=== PATIENT | male | born 1985 | race Caucasian/White ===

== ENCOUNTER 2018-03-08 09:59 | Emergency (ER) | payer SELFPAY ==
--- NOTE | 2018-03-08 10:09 | EDM.PDOC ---
ED HPI GENERAL MEDICAL PROBLEM - General Chief Complaint: Upper Extremity Injury/Pain Stated Complaint: RT WRIST HURTS Time Seen by Provider: 03/08/18 10:18 Source of Information: Reports: Patient History Limitations: Reports: No Limitations - History of Present Illness INITIAL COMMENTS - FREE TEXT/NARRATIVE: HISTORY AND PHYSICAL: History of present illness: Patient is a 33-year-old male who presents to the emergency room with complaints of wrist pain since yesterday. While at work yesterday he was pulling on some pipe and felt a "pop" to the left wrist going up into the forearm. He states he was able to continue with his day but did have discomfort with flexion and extension of his wrist or grasping his closed. Woke up this morning with increased pain and presented to the emergency room for evaluation. He denies any previous injury or trauma to the affected extremity. Review of systems: As per history of present illness and below otherwise all systems reviewed and negative. Past medical history: As per history of present illness and as reviewed below otherwise noncontributory. Surgical history: As per history of present illness and as reviewed below otherwise noncontributory. Social history: No reported history of drug or alcohol abuse. Family history: As per history of present illness and as reviewed below otherwise noncontributory. Physical exam: General: Well-developed and well-nourished 33-year-old male. Alert and oriented. Nontoxic appearing and in no acute distress. HEENT: Atraumatic, normocephalic, pupils equal and reactive bilaterally, negative for conjunctival pallor or scleral icterus, mucous membranes moist, throat clear, neck supple, nontender, trachea midline. No drooling or trismus noted. No meningeal signs Lungs: Clear to auscultation, breath sounds equal bilaterally, chest nontender. Heart: S1S2, regular rate and rhythm without overt murmur Abdomen: Soft, nondistended, nontender. Negative for masses or hepatosplenomegaly. Negative for costovertebral tenderness. Pelvis: Stable nontender. Genitourinary: Deferred. Rectal: Deferred. Skin: Intact, warm, dry. No lesions or rashes noted. Extremities: Moves all extremities per self without difficulty or deficits, able to close his fist tightly although this does cause pain in the inner forearm. Good flexion and extension of the wrist. Able to flex and extend all 5 fingers on the affected extremity. Strong radial pulse. Capillary refill less than 3 seconds. CMS intact. No pain with palpation of the affected forearm. Does have some muscle tenderness when palpating distal forearm. Pain does not extend into the medial forearm, elbow, bicep/tricep or shoulder/clavicle. Range of motion intact. Neurovascular unremarkable. Neuro: Awake, alert, oriented. Cranial nerves II through XII unremarkable. Cerebellum unremarkable. Motor and sensory unremarkable throughout. Exam nonfocal. Notes: Discussed with the patient be limited availability imaging in the emergency room. Today will do an x-ray to make sure the bony prominences are intact. His pain/injury does sound muscle related. No obvious deformities are noted. Aware of this and agreeable to plan of care. X-ray shows no bony abnormalities. We'll place the patient in a cockup wrist splint. We discussed rest ice and elevating the extremity over the next couple days. Encouraged him to follow-up with the hand surgeon or orthopedics if he does not feel improved in the next couple days as he may need further imaging. He and his significant other voice understanding. Agreeable to plan of care. Denies any further questions at this time. 15 tablets of tramadol for nighttime use. Should education was completed. Diagnostics: X-ray Therapeutics: Toradol, wrist splint Impression: Left wrist injury Plan: 1. Please rest, ice and elevated the affected extremity. Use the brace over the next 3-5 days. 2. Tylenol and/or ibuprofen as needed for pain management. Use the tramadol as directed. This medication may cause drowsiness so do not take it while driving or needing to be functioning outside of the house. 3. As we discussed this injury may be a tendon or muscular related. This should be further evaluated by orthopedic and or our hand surgeon (Dr Tom) in the next couple days. Return to the ED as needed and as discussed. Definitive disposition and diagnosis as appropriate pending reevaluation and review of above. Duration: Day(s): Location: Reports: Upper Extremity, Left Left Hand Pain Score (Numeric/FACES): 6 - Related Data Allergies Allergy/AdvReac Type Severity Reaction Status Date / Time No Known Allergies Allergy Verified 03/08/18 10:15 Home Meds: Home Meds Lisinopril 40 mg PO DAILY 03/08/18 [History] carBAMazepine [Carbamazepine] 200 mg PO DAILY 03/08/18 [History] Review of Systems - Review of Systems Review Of Systems: ROS reveals no pertinent complaints other than HPI. ED EXAM, GENERAL - Physical Exam Exam: See Below (See dictation) Course - Vital Signs Last Recorded V/S: Last Vital Signs Temp 98.0 F 03/08/18 10:11 Pulse 75 03/08/18 10:11 Resp 18 03/08/18 10:11 BP 122/83 03/08/18 10:11 Pulse Ox 96 03/08/18 10:11 - Orders/Labs/Meds Orders: Active Orders 24 hr Category Date Time Status DME for Discharge [COMM] Stat Oth 03/08/18 10:43 Ordered Meds: Medications Discontinued Medications Generic Name Dose Route Start Last Admin Trade Name Freq PRN Reason Stop Dose Admin Ketorolac Tromethamine 60 mg 03/08/18 10:43 03/08/18 10:53 Toradol IM 03/08/18 10:44 60 mg ONETIME ONE Administration Departure - Departure Time of Disposition: 10:53 Disposition: Home, Self-Care 01 Clinical Impression: Left wrist injury Qualifiers: Encounter type: initial encounter Qualified Code(s): S69.92XA - Unspecified injury of left wrist, hand and finger(s), initial encounter - Discharge Information Referrals: PCP,None [Primary Care Provider] - Forms: ED Department Discharge Additional Instructions: The following information is given to patients seen in the emergency department who are being discharged to home. This information is to outline your options for follow-up care. We provide all patients seen in our emergency department with a follow-up referral. The need for follow-up, as well as the timing and circumstances, are variable depending upon the specifics of your emergency department visit. If you don't have a primary care physician on staff, we will provide you with a referral. We always advise you to contact your personal physician following an emergency department visit to inform them of the circumstance of the visit and for follow-up with them and/or the need for any referrals to a consulting specialist. The emergency department will also refer you to a specialist when appropriate. This referral assures that you have the opportunity for follow-up care with a specialist. All of these measure are taken in an effort to provide you with optimal care, which includes your follow-up. Under all circumstances we always encourage you to contact your private physician who remains a resource for coordinating your care. When calling for follow-up care, please make the office aware that this follow-up is from your recent emergency room visit. If for any reason you are refused follow-up, please contact the [facility] Emergency Department at and asked to speak to the emergency department charge nurse. [facility] Specialty Care - Plastic Surgery Professional [address], [address] [address] [facility] - Orth[facility] [address], [address] [address] 1. Please rest, ice and elevated the affected extremity. Use the brace over the next 3-5 days. 2. Tylenol and/or ibuprofen as needed for pain management. Use the tramadol as directed. This medication may cause drowsiness so do not take it while driving or needing to be functioning outside of the house. 3. As we discussed this injury may be a tendon or muscular related. This should be further evaluated by orthopedic and or our hand surgeon (Dr Tom) in the next couple days. Return to the ED as needed and as discussed. - My Orders Last 24 Hours: My Active Orders 03/08/18 10:43 DME for Discharge [COMM] Stat - Assessment/Plan Last 24 Hours: My Active Orders 03/08/18 10:43 DME for Discharge [COMM] Stat
--- NOTE | 2018-03-08 10:42 | CR ---
Left wrist Clinical history: Pain Comparison: None. Findings: There is no evidence of pronator fat pad displacement. Intercarpal spaces are normal. There is no evidence of fracture. Impression: No acute bony abnormalities
[2018-03-08] MEDS ORDERED: Ketorolac 60 MG/2 ML SDV IM ONE (10:43)
== END 2018-03-08 11:09 | disposition home or self-care (01) ==
LOC: MW.ED 09:59
DX: S69.92XA Unspecified injury of left wrist, hand and finger(s), initial encounter (principal); Z79.899 Other long term (current) drug therapy; X50.9XXA Other and unspecified overexertion or strenuous movements or postures, initial encounter
CPT/HCPCS: 73100; 96372; 99283; J1885

== ENCOUNTER 2018-06-10 09:50 | Observation (INO) | payer BC, OTHER ==
[2018-06-10] MEDS ORDERED: Sodium Chloride 0.9% 10 ML Syringe FLUSH PRN (10:41)
[2018-06-10] MEDS ORDERED: Sodium Chloride 0.9% 2.5 ML Syringe FLUSH PRN (10:41)
[2018-06-10] MEDS ORDERED: Piperacillin/Tazobactam 3.375 GM in Sodium Chloride 0.9% 50 ML IV ONE (10:43)
[2018-06-10] MEDS ORDERED: Sodium Chloride 0.9% 1,000 ML IV ONE (10:43)
--- NOTE | 2018-06-10 10:46 | EDM.PDOC ---
ED HPI GENERAL MEDICAL PROBLEM - General Chief Complaint: Skin Complaint Stated Complaint: INFECTION IN RT LEG Time Seen by Provider: 06/10/18 10:44 Source of Information: Reports: Patient History Limitations: Reports: No Limitations - History of Present Illness INITIAL COMMENTS - FREE TEXT/NARRATIVE: HISTORY AND PHYSICAL: []33-year-old male presenting with right knee pain and infection History of Present Illness: []Patient has had a pustular area on his knee for the last week and a half now has spread to 3 spots pustular and erythema He is complaining that it feels like it's ready to burst open Review of Systems: As per history of present illness and below otherwise all systems reviewed and negative. Past medical history: As per history of present illness and as reviewed below otherwise noncontributory. Surgical history: As per history of present illness and as reviewed below otherwise noncontributory. Social history: No reported history of drug or alcohol abuse. Family history: As per history of present illness and as reviewed below otherwise noncontributory. Physical exam: Alert and oriented male answering questions appropriately in full sentences without any shortness of breath. No signs of reviewed his afebrile at this time. HEENT: Atraumatic, normocehpalic, pupils reactive, negative for conjunctival pallor or scleral icterus, mucous membranes moist, throat clear, neck supple, nontender, trachea midline. Lungs: Clear to auscultation, breath sounds equal bilaterally, chest non tender. Heart: S1S2, regular, negative for clicks, rubs, or JVD. Abdomen: Soft, nondistended, nontender. Negative for masses or hepatossplenmegaly. Negative for costovertebral tenderness. Pelvis: Stable nontender. Genitourinary: Deferred. Rectal: Deferred Extremities: Erythematous and edematous hot to touch on the right knee culture to be obtained from pustular material, negative for cords or calf pain. Neurovascular unremarkable. Neuro: Awake, alert, oriented. Cranial nerves II through XII unremarkable. Cerebellum unremarkable. Motor and sensory unremarkable throughout. Exam nonfocal. Discussed this case with Dr. Lunsford. He is agreeable to refer to observation treat with IV antibiotics. Diagnostics: []Right knee x-ray CBC CMP blood cultures 2 Therapeutics: []IV fluids vancomycin 1 g Impression: []cellulitis Plan: []Refer to observation Definitive disposition and diagnosis as appropriate pending reevaluation and review of above. Onset: Gradual Duration: Week(s): Location: Reports: Lower Extremity, Right Quality: Reports: Throbbing Severity: Moderate Improves with: Reports: None Worsens with: Reports: None Associated Symptoms: Reports: No Other Symptoms Right Knee Pain Score (Numeric/FACES): 9 - Related Data Allergies Allergy/AdvReac Type Severity Reaction Status Date / Time No Known Allergies Allergy Verified 06/10/18 10:01 Home Meds: Home Meds Lisinopril 40 mg PO DAILY 03/08/18 [History] carBAMazepine [Carbamazepine] 200 mg PO DAILY 03/08/18 [History] Past Medical History Cardiovascular History: Reports: Hypertension Psychiatric History: Reports: Bipolar Oncologic (Cancer) History: Reports: Brain - Past Surgical History HEENT Surgical History: Reports: Tonsillectomy Neurological Surgical History: Reports: Lumbar Spine Musculoskeletal Surgical History: Reports: Other (See Below) Other Musculoskeletal Surgeries/Procedures:: Left elbow surgery Social & Family History - Family History Family Medical History: Noncontributory - Tobacco Use Smoking Status *Q: Never Smoker Second Hand Smoke Exposure: No - Caffeine Use Caffeine Use: Reports: Coffee - Recreational Drug Use Recreational Drug Use: No ED ROS GENERAL - Review of Systems Review Of Systems: ROS reveals no pertinent complaints other than HPI. ED EXAM, SKIN/RASH Exam: See Below (see dictation) Course - Vital Signs Last Recorded V/S: Last Vital Signs Temp 36.4 C 06/10/18 09:58 Pulse 105 H 06/10/18 09:58 Resp 18 06/10/18 09:58 BP 130/77 06/10/18 09:58 Pulse Ox 96 06/10/18 09:58 - Orders/Labs/Meds Orders: Active Orders 24 hr Category Date Time Status Patient Status [ADT] Stat ADT 06/10/18 11:44 Ordered Knee 3V Rt [CR] Stat Exams 06/10/18 10:43 Taken CULTURE BLOOD [BC] Stat Lab 06/10/18 10:53 Received CULTURE BLOOD [BC] Stat Lab 06/10/18 11:03 Received CULTURE URINE [RM] Stat Lab 06/10/18 10:41 Ordered CULTURE WOUND [RM] Stat Lab 06/10/18 10:41 Ordered UA W/MICROSCOPIC [URIN] Stat Lab 06/10/18 10:41 Ordered Sodium Chloride 0.9% [Saline Flush] Med 06/10/18 10:41 Active 10 ml FLUSH ASDIRECTED PRN Sodium Chloride 0.9% [Saline Flush] Med 06/10/18 10:41 Active 2.5 ml FLUSH ASDIRECTED PRN Blood Culture x2 Reflex Set [OM.PC] Stat Ot 06/10/18 10:41 Ordered Saline Lock Insert [OM.PC] Stat Ot 06/10/18 10:41 Ordered Medication Orders Sodium Chloride (Saline Flush) 10 ml FLUSH ASDIRECTED PRN PRN Reason: Keep Vein Open Last Admin: 06/10/18 11:01 Dose: 10 ml Sodium Chloride (Saline Flush) 2.5 ml FLUSH ASDIRECTED PRN PRN Reason: Keep Vein Open Last Admin: 06/10/18 11:01 Dose: 2.5 ml Labs: Laboratory Tests 06/10/18 06/10/18 Range/Units 10:53 10:53 WBC 9.05 (4.0-11.0) K/uL RBC 4.34 L (4.50-5.90) M/uL Hgb 14.4 (13.0-17.0) g/dL Hct 41.0 (38.0-50.0) % MCV 94.5 (80.0-98.0) fL MCH 33.2 H (27.0-32.0) pg MCHC 35.1 (31.0-37.0) g/dL RDW Std Deviation 42.5 (28.0-62.0) fl RDW Coeff of Ana Cristina 13 (11.0-15.0) % Plt Count 256 (150-400) K/uL MPV 9.30 (7.40-12.00) fL Neut % (Auto) 71.1 (48.0-80.0) % Lymph % (Auto) 16.0 (16.0-40.0) % [place] % (Auto) 9.5 (0.0-15.0) % Eos % (Auto) 3.2 (0.0-7.0) % Baso % (Auto) 0.2 (0.0-1.5) % Neut # (Auto) 6.4 H (1.4-5.7) K/uL Lymph # (Auto) 1.5 (0.6-2.4) K/uL [place] # (Auto) 0.9 H (0.0-0.8) K/uL Eos # (Auto) 0.3 (0.0-0.7) K/uL Baso # (Auto) 0.0 (0.0-0.1) K/uL Nucleated RBC % 0.0 /100WBC Nucleated RBCs # 0 K/uL Sodium 140 (136-148) mmol/L Potassium 4.2 (3.5-5.1) mmol/L Chloride 105 (98-107) mmol/L Carbon Dioxide 27.3 (21.0-32.0) mmol/L BUN 17 (7.0-18.0) mg/dL Creatinine 1.0 (0.8-1.3) mg/dL Est Cr Clr Drug Dosing 111.90 mL/min Estimated GFR (MDRD) > 60.0 ml/min Glucose 127 H (74-106) mg/dL Calcium 8.6 (8.5-10.1) mg/dL Total Bilirubin 0.5 (0.2-1.0) mg/dL AST 37 (15-37) IU/L ALT 61 (14-63) IU/L Alkaline Phosphatase 74 (46-116) U/L Total Protein 7.0 (6.4-8.2) g/dL Albumin 3.4 (3.4-5.0) g/dL Globulin 3.6 H (2.0-3.5) g/dL Albumin/Globulin Ratio 0.9 L (1.3-2.8) Meds: Medications Generic Name Dose Route Start Last Admin Trade Name Freq PRN Reason Stop Dose Admin Sodium Chloride 10 ml 06/10/18 10:41 06/10/18 11:01 Saline Flush FLUSH 10 ml ASDIRECTED PRN Administration Keep Vein Open Sodium Chloride 2.5 ml 06/10/18 10:41 06/10/18 11:01 Saline Flush FLUSH 2.5 ml ASDIRECTED PRN Administration Keep Vein Open Discontinued Medications Generic Name Dose Route Start Last Admin Trade Name Freq PRN Reason Stop Dose Admin Sodium Chloride 1,000 mls @ 999 mls/hr 06/10/18 10:43 06/10/18 10:57 Normal Saline IV 06/10/18 11:43 999 mls/hr STAT ONE Administration Piperacillin Sod/Tazobactam 50 mls @ 100 mls/hr 06/10/18 10:43 06/10/18 11:15 Sod 3.375 gm/ Sodium Chloride IV 06/10/18 11:12 100 mls/hr ONETIME ONE Administration Vancomycin HCl 1 gm/ Sodium 250 mls @ 250 mls/hr 06/10/18 10:43 Chloride IV 06/10/18 11:42 ONETIME ONE Ketorolac Tromethamine 30 mg 06/10/18 11:01 06/10/18 11:14 Toradol IVPUSH 06/10/18 11:02 30 mg ONETIME ONE Administration Departure - Departure Time of Disposition: 11:46 Disposition: Refer to Observation Condition: Good Clinical Impression: Cellulitis Qualifiers: Site of cellulitis: extremity Site of cellulitis of extremity: lower extremity Laterality: right Qualified Code(s): L03.115 - Cellulitis of right lower limb - Discharge Information Instructions: Cellulitis, Adult Referrals: PCP,None [Primary Care Provider] - Forms: ED Department Discharge - My Orders Last 24 Hours: My Active Orders 06/10/18 10:41 CULTURE URINE [RM] Stat CULTURE WOUND [RM] Stat UA W/MICROSCOPIC [URIN] Stat Sodium Chloride 0.9% [Saline Flush] 10 ml FLUSH ASDIRECTED PRN Sodium Chloride 0.9% [Saline Flush] 2.5 ml FLUSH ASDIRECTED PRN Blood Culture x2 Reflex Set [OM.PC] Stat Saline Lock Insert [OM.PC] Stat 06/10/18 10:43 Knee 3V Rt [CR] Stat 06/10/18 10:53 CULTURE BLOOD [BC] Stat 06/10/18 11:03 CULTURE BLOOD [BC] Stat 06/10/18 11:44 Patient Status [ADT] Stat - Assessment/Plan Last 24 Hours: My Active Orders 06/10/18 10:41 CULTURE URINE [RM] Stat CULTURE WOUND [RM] Stat UA W/MICROSCOPIC [URIN] Stat Sodium Chloride 0.9% [Saline Flush] 10 ml FLUSH ASDIRECTED PRN Sodium Chloride 0.9% [Saline Flush] 2.5 ml FLUSH ASDIRECTED PRN Blood Culture x2 Reflex Set [OM.PC] Stat Saline Lock Insert [OM.PC] Stat 06/10/18 10:43 Knee 3V Rt [CR] Stat 06/10/18 10:53 CULTURE BLOOD [BC] Stat 06/10/18 11:03 CULTURE BLOOD [BC] Stat 06/10/18 11:44 Patient Status [ADT] Stat
[2018-06-10] MEDS ORDERED: Ketorolac 30 MG/ML SDV IVPUSH ONE (11:01)
[2018-06-10 11:33] LABS: CHLORIDE,CL 105 mmol/L (98-107); SODIUM,NA 140 mmol/L (136-148)
[2018-06-10] MEDS ORDERED: Ondansetron 4 MG/2 ML SDV IVPUSH PRN (12:10)
[2018-06-10] MEDS ORDERED: Acetaminophen 325 MG Tab PO PRN (12:10)
--- NOTE | 2018-06-10 12:10 | PCM.HP ---
H&P History of Present Illness - General Date of Service: 06/10/18 Admit Problem/Dx: Admission Diagnosis/Problem Admission Diagnosis/Problem Cellulitis - History of Present Illness Initial Comments - Free Text/Narative: 33 yo male who presents with right knee pain and swelling. PAtient reports he has been on his knees working over the past several days where he has developed a mild rash with some edema Right Knee Pain Score (Numeric/FACES): 9 - Related Data Allergies/Adverse Reactions: Allergies Allergy/AdvReac Type Severity Reaction Status Date / Time acetaminophen [From Tylenol] Allergy Rash Verified 06/10/18 20:26 Home Medications: Home Meds Lisinopril 40 mg PO DAILY 03/08/18 [History] carBAMazepine [Carbamazepine] 200 mg PO DAILY 03/08/18 [History] Sulfamethoxazole/Trimethoprim [Septra DS] 1 tab PO BID 10 Days #20 tablet [Rx] oxyCODONE 5 mg PO DAILY PRN 5 Days #5 tablet 06/12/18 [Rx] Past Medical History Cardiovascular History: Reports: Hypertension Psychiatric History: Reports: Bipolar Oncologic (Cancer) History: Reports: Brain - Past Surgical History HEENT Surgical History: Reports: Tonsillectomy Neurological Surgical History: Reports: Lumbar Spine Musculoskeletal Surgical History: Reports: Other (See Below) Other Musculoskeletal Surgeries/Procedures:: Left elbow surgery Social & Family History - Family History Family Medical History: Noncontributory - Tobacco Use Smoking Status *Q: Never Smoker Second Hand Smoke Exposure: No - Caffeine Use Caffeine Use: Reports: Coffee - Recreational Drug Use Recreational Drug Use: No H&P Review of Systems - Review of Systems: Review Of Systems: ROS reveals no pertinent complaints other than HPI. Exam - Exam Exam: See Below - Vital Signs Vital Signs: Last Vital Signs Temp 36.4 C 06/10/18 09:58 Pulse 105 H 06/10/18 09:58 Resp 18 06/10/18 09:58 BP 130/77 06/10/18 09:58 Pulse Ox 96 06/10/18 09:58 Weight: 113 kg - Exam General: Alert, Oriented HEENT: Hearing Intact Neck: Supple, Trachea Midline Lungs: Clear to Auscultation, Normal Respiratory Effort Cardiovascular: Regular Rate, Regular Rhythm GI/Abdominal Exam: Soft, Non-Tender Extremities: Other (full range of motion of right knee, no effusion noted of knee. mild erythma over petala with some edema) - Patient Data Lab Results Last 24 hrs: Laboratory Results - last 24 hr 06/10/18 06/10/18 Range/Units 10:53 10:53 WBC 9.05 (4.0-11.0) K/uL RBC 4.34 L (4.50-5.90) M/uL Hgb 14.4 (13.0-17.0) g/dL Hct 41.0 (38.0-50.0) % MCV 94.5 (80.0-98.0) fL MCH 33.2 H (27.0-32.0) pg MCHC 35.1 (31.0-37.0) g/dL RDW Std Deviation 42.5 (28.0-62.0) fl RDW Coeff of Ana Cristina 13 (11.0-15.0) % Plt Count 256 (150-400) K/uL MPV 9.30 (7.40-12.00) fL Neut % (Auto) 71.1 (48.0-80.0) % Lymph % (Auto) 16.0 (16.0-40.0) % [place] % (Auto) 9.5 (0.0-15.0) % Eos % (Auto) 3.2 (0.0-7.0) % Baso % (Auto) 0.2 (0.0-1.5) % Neut # (Auto) 6.4 H (1.4-5.7) K/uL Lymph # (Auto) 1.5 (0.6-2.4) K/uL [place] # (Auto) 0.9 H (0.0-0.8) K/uL Eos # (Auto) 0.3 (0.0-0.7) K/uL Baso # (Auto) 0.0 (0.0-0.1) K/uL Nucleated RBC % 0.0 /100WBC Nucleated RBCs # 0 K/uL Sodium 140 (136-148) mmol/L Potassium 4.2 (3.5-5.1) mmol/L Chloride 105 (98-107) mmol/L Carbon Dioxide 27.3 (21.0-32.0) mmol/L BUN 17 (7.0-18.0) mg/dL Creatinine 1.0 (0.8-1.3) mg/dL Est Cr Clr Drug Dosing 111.90 mL/min Estimated GFR (MDRD) > 60.0 ml/min Glucose 127 H (74-106) mg/dL Calcium 8.6 (8.5-10.1) mg/dL Total Bilirubin 0.5 (0.2-1.0) mg/dL AST 37 (15-37) IU/L ALT 61 (14-63) IU/L Alkaline Phosphatase 74 (46-116) U/L Total Protein 7.0 (6.4-8.2) g/dL Albumin 3.4 (3.4-5.0) g/dL Globulin 3.6 H (2.0-3.5) g/dL Albumin/Globulin Ratio 0.9 L (1.3-2.8) Result Diagrams: 06/12/18 04:55 06/12/18 04:55 Problem List Initiated/Reviewed/Updated: Yes Orders Last 24hrs: Active Orders 24 hr Category Date Time Status Patient Status [ADT] Stat ADT 06/10/18 11:44 Active Knee 3V Rt [CR] Stat Exams 06/10/18 10:43 Taken CULTURE BLOOD [BC] Stat Lab 06/10/18 10:53 Received CULTURE BLOOD [BC] Stat Lab 06/10/18 11:03 Received CULTURE URINE [RM] Stat Lab 06/10/18 10:41 Ordered CULTURE WOUND [RM] Stat Lab 06/10/18 10:41 Ordered UA W/MICROSCOPIC [URIN] Stat Lab 06/10/18 10:41 Ordered Piperacillin/Tazobactam [Piperacil-Tazobact] 3.375 gm Med 06/10/18 17:00 Ordered Sodium Chloride 0.9% [Normal Saline] 50 ml IV Q6H Sodium Chloride 0.9% [Saline Flush] Med 06/10/18 10:41 Active 10 ml FLUSH ASDIRECTED PRN Sodium Chloride 0.9% [Saline Flush] Med 06/10/18 10:41 Active 2.5 ml FLUSH ASDIRECTED PRN Vancomycin Pharmacy to Dose [Pharmacy to Dose - Med 06/10/18 12:15 Ordered Vancomycin] 1 dose .XX ASDIRECTED Blood Culture x2 Reflex Set [OM.PC] Stat Oth 06/10/18 10:41 Ordered Saline Lock Insert [OM.PC] Stat Oth 06/10/18 10:41 Ordered Medication Orders Piperacillin Sod/Tazobactam (Sod 3.375 gm/ Sodium Chloride) 50 mls @ 100 mls/ hr IV Q6H [facility] Sodium Chloride (Saline Flush) 10 ml FLUSH ASDIRECTED PRN PRN Reason: Keep Vein Open Last Admin: 06/10/18 11:01 Dose: 10 ml Sodium Chloride (Saline Flush) 2.5 ml FLUSH ASDIRECTED PRN PRN Reason: Keep Vein Open Last Admin: 06/10/18 11:01 Dose: 2.5 ml Vancomycin HCl (Pharmacy To Dose - Vancomycin) 1 dose .XX ASDIRECTED [facility] Assessment/Plan Comment:: 33 yo male admitted with cellulitis over knee. Patient is reluctant to admission but was agreeable to stay overnight for continued IV antibiotics. The knee does not appear to be septic but will continue to monitor.
[2018-06-10] MEDS: Heparin Sodium 5,000 Units/ML Vial SUBCUT SCH ×2 (12:48→20:27)
[2018-06-10] MEDS: oxyCODONE 5 MG Tab PO PRN ×3 (12:49→22:22)
[2018-06-10] MEDS: Nicotine 14 MG/24 Hr Patch TRDERM SCH (17:09)
[2018-06-10] MEDS: Piperacillin/Tazobactam 3.375 GM in Sodium Chloride 0.9% 50 ML IV SCH ×2 (17:28→22:10)
[2018-06-10] MEDS: Ibuprofen 400 MG Tab PO PRN (20:38)
[2018-06-11] MEDS: Heparin Sodium 5,000 Units/ML Vial SUBCUT SCH ×3 (04:27→20:21)
[2018-06-11] MEDS: oxyCODONE 5 MG Tab PO PRN ×4 (04:27→20:19)
[2018-06-11] MEDS: Piperacillin/Tazobactam 3.375 GM in Sodium Chloride 0.9% 50 ML IV SCH ×4 (04:29→23:20)
[2018-06-11 06:38] LABS: CHLORIDE,CL 107 mmol/L (98-107); SODIUM,NA 141 mmol/L (136-148)
[2018-06-11] MEDS: Nicotine 14 MG/24 Hr Patch TRDERM SCH (08:04)
[2018-06-11] MEDS: Ibuprofen 400 MG Tab PO PRN ×3 (08:19→23:19)
[2018-06-11] MEDS: Lisinopril 10 MG Tab PO SCH (08:22)
[2018-06-11] MEDS: carBAMazepine 200 MG Tab PO SCH (08:23)
--- NOTE | 2018-06-11 12:36 | PCM.PN ---
- General Info Date of Service: 06/11/18 - Review of Systems Systems Review Comment:: patient reports knee pain, swelling and redness has improved - Patient Data Vitals - Most Recent: Last Vital Signs Temp 36.8 C 06/11/18 11:49 Pulse 81 06/11/18 11:49 Resp 18 06/11/18 11:49 BP 138/79 06/11/18 11:49 Pulse Ox 95 06/11/18 11:49 Weight - Most Recent: 112.604 kg I&O - Last 24 Hours: Intake & Output 06/10/18 06/11/18 06/11/18 22:59 06:59 14:59 Intake Total 500 1600 Output Total 300 1250 Balance 200 350 Lab Results Last 24 Hours: Laboratory Results - last 24 hr 06/10/18 06/11/18 06/11/18 Range/Units 14:15 06:01 06:01 WBC 8.31 (4.0-11.0) K/uL RBC 4.16 L (4.50-5.90) M/uL Hgb 13.4 (13.0-17.0) g/dL Hct 40.0 (38.0-50.0) % MCV 96.2 (80.0-98.0) fL MCH 32.2 H (27.0-32.0) pg MCHC 33.5 (31.0-37.0) g/dL RDW Std Deviation 44.5 (28.0-62.0) fl RDW Coeff of Ana Cristina 13 (11.0-15.0) % Plt Count 245 (150-400) K/uL MPV 9.40 (7.40-12.00) fL Neut % (Auto) 65.1 (48.0-80.0) % Lymph % (Auto) 21.1 (16.0-40.0) % [place] % (Auto) 9.1 (0.0-15.0) % Eos % (Auto) 4.5 (0.0-7.0) % Baso % (Auto) 0.2 (0.0-1.5) % Neut # (Auto) 5.4 (1.4-5.7) K/uL Lymph # (Auto) 1.8 (0.6-2.4) K/uL [place] # (Auto) 0.8 (0.0-0.8) K/uL Eos # (Auto) 0.4 (0.0-0.7) K/uL Baso # (Auto) 0.0 (0.0-0.1) K/uL Nucleated RBC % 0.0 /100WBC Nucleated RBCs # 0 K/uL Sodium 141 (136-148) mmol/L Potassium 4.0 (3.5-5.1) mmol/L Chloride 107 (98-107) mmol/L Carbon Dioxide 28.0 (21.0-32.0) mmol/L BUN 16 (7.0-18.0) mg/dL Creatinine 0.9 (0.8-1.3) mg/dL Est Cr Clr Drug Dosing 124.34 mL/min Estimated GFR (MDRD) > 60.0 ml/min Glucose 112 H (74-106) mg/dL Calcium 8.1 L (8.5-10.1) mg/dL Urine Color YELLOW Urine Appearance CLEAR Urine pH 6.0 (5.0-8.0) Ur Specific [place] >= 1.030 (1.001-1.035) Urine Protein NEGATIVE (NEGATIVE) mg/dL Urine Glucose (UA) NEGATIVE (NEGATIVE) mg/dL Urine Ketones NEGATIVE (NEGATIVE) mg/dL Urine Occult Blood NEGATIVE (NEGATIVE) Urine Nitrite NEGATIVE (NEGATIVE) Urine Bilirubin NEGATIVE (NEGATIVE) Urine Urobilinogen 0.2 (<2.0) EU/dL Ur Leukocyte Esterase NEGATIVE (NEGATIVE) Urine RBC 0-1 (0-2/HPF) Urine WBC 0-1 (0-5/HPF) Ur Epithelial Cells RARE (NONE-FEW) Urine Bacteria RARE (NEGATIVE) Marcus Results Last 24 Hours: Microbiology 06/10/18 11:03 Aerobic Blood Culture - Preliminary Blood - Venous - Lab Draw NO GROWTH AFTER 1 DAY Anaerobic Blood Culture - Preliminary NO GROWTH AFTER 1 DAY 06/10/18 10:53 Aerobic Blood Culture - Preliminary Blood - Venous NO GROWTH AFTER 1 DAY Anaerobic Blood Culture - Preliminary NO GROWTH AFTER 1 DAY Med Orders - Current: Current Medications Carbamazepine (Tegretol Tab) 200 mg PO DAILY [facility] Last Admin: 06/11/18 08:23 Dose: Not Given Heparin Sodium (Porcine) (Heparin Sodium) 5,000 units SUBCUT Q8H [facility] Last Admin: 06/11/18 04:27 Dose: 5,000 units Piperacillin Sod/Tazobactam (Sod 3.375 gm/ Sodium Chloride) 50 mls @ 100 mls/ hr IV Q6H [facility] Last Admin: 06/11/18 11:06 Dose: 100 mls/hr Vancomycin HCl 1,500 mg/ (Sodium Chloride) 500 mls @ 333.333 mls/hr IV Q8H [facility] Last Admin: 06/11/18 07:55 Dose: 333.333 mls/hr Ibuprofen (Motrin) 400 mg PO Q6H PRN PRN Reason: Pain (mild 1-3) Last Admin: 06/11/18 08:19 Dose: 400 mg Lisinopril (Prinivil) 40 mg PO DAILY [facility] Last Admin: 06/11/18 08:22 Dose: Not Given Nicotine (Habitrol) 14 mg TRDERM DAILY [facility] Last Admin: 06/11/18 08:04 Dose: 14 mg Ondansetron HCl (Zofran) 4 mg IVPUSH Q4H PRN PRN Reason: Nausea Oxycodone HCl (Oxycodone) 5 mg PO Q4H PRN PRN Reason: Pain (moderate 4-6) Last Admin: 06/11/18 09:50 Dose: 5 mg Sodium Chloride (Saline Flush) 10 ml FLUSH ASDIRECTED PRN PRN Reason: Keep Vein Open Last Admin: 06/10/18 11:01 Dose: 10 ml Sodium Chloride (Saline Flush) 2.5 ml FLUSH ASDIRECTED PRN PRN Reason: Keep Vein Open Last Admin: 06/10/18 11:01 Dose: 2.5 ml Vancomycin HCl (Pharmacy To Dose - Vancomycin) 1 dose .XX ASDIRECTED [facility] Discontinued Medications Sodium Chloride (Normal Saline) 1,000 mls @ 999 mls/hr IV STAT ONE Stop: 06/10/18 11:43 Last Admin: 06/10/18 10:57 Dose: 999 mls/hr Piperacillin Sod/Tazobactam (Sod 3.375 gm/ Sodium Chloride) 50 mls @ 100 mls/ hr IV ONETIME ONE Stop: 06/10/18 11:12 Last Admin: 06/10/18 11:15 Dose: 100 mls/hr Vancomycin HCl 1 gm/ Sodium (Chloride) 250 mls @ 250 mls/hr IV ONETIME ONE Stop: 06/10/18 11:42 Last Admin: 06/10/18 11:57 Dose: 250 mls/hr Ketorolac Tromethamine (Toradol) 30 mg IVPUSH ONETIME ONE Stop: 06/10/18 11:02 Last Admin: 06/10/18 11:14 Dose: 30 mg - Exam General: Alert, Oriented Lungs: Clear to Auscultation, Normal Respiratory Effort Cardiovascular: Regular Rate, Regular Rhythm GI/Abdominal Exam: Soft, Non-Tender Extremities: Other (full range of motion of right knee, 3mm scab over small superficial abscess over left patellar area that express 2mm of purulent material, no effusion on knee. edema and erthema over patela improving.) - Problem List Review Problem List Initiated/Reviewed/Updated: Yes - My Orders Last 24 Hours: My Active Orders 06/10/18 12:10 Up ad Delilah [RC] ASDIRECTED Ibuprofen [Motrin] 400 mg PO Q6H PRN Ondansetron [Zofran] 4 mg IVPUSH Q4H PRN oxyCODONE 5 mg PO Q4H PRN Resuscitation Status Routine 06/10/18 12:11 Oxygen Therapy [RC] PRN Vital Signs [RC] Q4H Sequential Compression Device [OM.PC] Per Unit Routine 06/10/18 12:15 Heparin Sodium 5,000 units SUBCUT Q8H Vancomycin Pharmacy to Dose [Pharmacy to Dose - Vancomycin] 1 dose .XX ASDIRECTED 06/10/18 16:00 Vancomycin 1,500 mg Sodium Chloride 0.9% [Normal Saline] 500 ml IV Q8H 06/10/18 16:20 Nicotine [Habitrol] 14 mg TRDERM DAILY 06/10/18 17:00 Piperacillin/Tazobactam [Piperacil-Tazobact] 3.375 gm Sodium Chloride 0.9% [ Normal Saline] 50 ml IV Q6H 06/11/18 09:00 Lisinopril [Prinivil] 40 mg PO DAILY carBAMazepine [TEGretol Tab] 200 mg PO DAILY 06/12/18 05:11 BASIC METABOLIC PANEL,BMP [CHEM] AM CBC WITH AUTO DIFF [HEME] AM 06/12/18 07:30 VANCOMYCIN TROUGH [CHEM] Timed - Plan Plan:: 33 yo male admitted with cellulitis over knee. We will continue vancomycin and zosyn
--- NOTE | 2018-06-11 13:37 | CR ---
EXAM DATE: 06/10/18 PATIENT'S AGE: 33 Patient: DIMITRY ABRAHAM Facility: [place], [place] Site . Site : 1985 Study: XRay Knee Right [id number]/[id number] 11:26:29 AM Ordering Physician: Doctor Mckoy Final Report: INDICATION: knee swollen/ red/ hot/ oozing fluid/ pain HISTORY: Swelling and pain. COMPARISON: None. TECHNIQUE: Right knee, 3 portable views. FINDINGS: Mineralization is normal. No radiopaque foreign body is seen. There is no acute bone abnormality. No depression of either tibial plateau. There is soft tissue swelling, with a suprapatellar joint effusion on the lateral view. No periostitis. No osseous erosion. No patellar subluxation or tilt. IMPRESSION: Soft tissue swelling, with a small suprapatellar joint effusion. Dictated by Pavel Hicks MD @ 06/10/2018 11:28:44 AM Dictated by: Pavel Hicks MD @ 06/10/2018 11:28:50 (Electronic Signature) Report Signed by Proxy. [facility]
[2018-06-12] MEDS: oxyCODONE 5 MG Tab PO PRN ×2 (04:20→09:46)
[2018-06-12] MEDS: Heparin Sodium 5,000 Units/ML Vial SUBCUT SCH (04:20)
[2018-06-12] MEDS: Piperacillin/Tazobactam 3.375 GM in Sodium Chloride 0.9% 50 ML IV SCH (04:23)
[2018-06-12 05:39] LABS: CHLORIDE,CL 107 mmol/L (98-107); SODIUM,NA 142 mmol/L (136-148)
[2018-06-12] MEDS: Lisinopril 10 MG Tab PO SCH (09:26)
[2018-06-12] MEDS: carBAMazepine 200 MG Tab PO SCH (09:28)
[2018-06-12] MEDS: Nicotine 14 MG/24 Hr Patch TRDERM SCH (09:28)
[2018-06-12] MEDS ORDERED: Sulfamethoxazole/Trimethoprim 800-160 MG Tab PO SCH (10:30)
--- NOTE | 2018-06-12 10:42 | PCM.DCSUM1 ---
<Clem Mercedes Z - Last Filed: 06/12/18 10:42> Discharge Summary - Hospital Course Free Text/Narrative:: Discharge Summary Date of admission: 06/10/2018 Date of discharge: 06/12/2018 Admitting diagnosis: #1. Right knee cellulitis #2. Leukocytosis #3. #4. #5. Discharge diagnoses: #1. Right knee cellulitis now improving #2. Leukocytosis resolved #3. #4. #5. Consultations: None Procedures: I&D of right knee abscess Hospitalization course: Patient was admitted and started on IV Zosyn due to his significant cellulitis over his right knee. He had edema and erythema, there are multiple areas of induration, he had decreased range of motion due to pain and cellulitis. He also had an elevated leukocytosis. Patient was started on Zosyn and a wound culture was done. The wound culture came back growing MSSA which was sensitive to current IV antibiotic treatment along with oral antibiotics including Bactrim. Patient on 06/12/2018 was deemed to be stable, his leukocytosis had resolved, his vital signs were within normal limits. The erythema and range of motion had significantly improved, there was one area of induration over the patella which was I&D and scant purulent fluid was aspirated. Patient tolerated the procedure well with no concerns and was subsequently discharged home on oral antibiotics and follow-up in a outpatient setting. Disposition on discharge: Home Condition on discharge: Good Discharge medications: Continuation of home medication, Bactrim double strength , 5 pills of oxycodone for symptomatic pain control Follow-up instructions: Patient to follow-up with Dr. Mercedes in an outpatient setting in the [facility] medicine clinic Diagnosis: Stroke: Yes Modified Jaymie Scale: No Symptoms at All Modified Jaymie Scale Score: 0 - Discharge Data Discharge Date: 06/12/18 Discharge Disposition: Home, Self-Care 01 Condition: Good - Discharge Diagnosis/Problem(s) (1) Cellulitis SNOMED Code(s): 911775702 ICD Code: L03.90 - CELLULITIS, UNSPECIFIED Status: Acute Qualifiers: Site of cellulitis: extremity Site of cellulitis of extremity: lower extremity Laterality: right Qualified Code(s): L03.115 - Cellulitis of right lower limb - Patient Instructions Diet: Regular Diet as Tolerated Activity: Apply Ice Driving: Do Not Drive Showering/Bathing: February Shower Wound/Incision Care: Keep Operative Site/Wound Site Clean and Dry Notify Provider of: Fever, Increased Pain, Swelling and Redness, Drainage - Discharge Plan *PRESCRIPTION DRUG MONITORING PROGRAM REVIEWED*: Yes *COPY OF PRESCRIPTION DRUG MONITORING REPORT IN PATIENT LCAIRE: No Prescriptions/Med Rec: oxyCODONE 5 mg PO DAILY PRN 5 Days #5 tablet PRN Reason: Pain (Moderate 4-6) Sulfamethoxazole/Trimethoprim [Septra DS] 1 tab PO BID 10 Days #20 tablet Home Medications: Home Meds Lisinopril 40 mg PO DAILY 03/08/18 [History] carBAMazepine [Carbamazepine] 200 mg PO DAILY 03/08/18 [History] Sulfamethoxazole/Trimethoprim [Septra DS] 1 tab PO BID 10 Days #20 tablet [Rx] oxyCODONE 5 mg PO DAILY PRN 5 Days #5 tablet 06/12/18 [Rx] Patient Handouts: Cellulitis, Adult, Oxycodone tablets or capsules, Sulfamethoxazole; Trimethoprim, SMX-TMP tablets Referrals: [facility] [Outside] Clem Mercedes MD [Resident] - 06/13/18 1:00 pm - Discharge Summary/Plan Comment DC Time >30 min.: No - Patient Data Vitals - Most Recent: Last Vital Signs Temp 36.4 C 06/12/18 08:50 Pulse 88 06/12/18 08:50 Resp 16 06/12/18 08:50 BP 150/94 H 06/12/18 09:26 Pulse Ox 97 06/12/18 08:50 Weight - Most Recent: 112.604 kg I&O - Last 24 hours: Intake & Output 06/11/18 06/12/18 06/12/18 22:59 06:59 14:59 Intake Total 900 2100 Output Total 900 600 Balance 0 1500 Lab Results - Last 24 hrs: Laboratory Results - last 24 hr 06/12/18 06/12/18 06/12/18 Range/Units 04:55 04:55 07:40 WBC 5.86 (4.0-11.0) K/uL RBC 4.00 L (4.50-5.90) M/uL Hgb 13.1 (13.0-17.0) g/dL Hct 38.4 (38.0-50.0) % MCV 96.0 (80.0-98.0) fL MCH 32.8 H (27.0-32.0) pg MCHC 34.1 (31.0-37.0) g/dL RDW Std Deviation 43.9 (28.0-62.0) fl RDW Coeff of Ana Cristina 13 (11.0-15.0) % Plt Count 255 (150-400) K/uL MPV 9.50 (7.40-12.00) fL Neut % (Auto) 52.3 (48.0-80.0) % Lymph % (Auto) 29.2 (16.0-40.0) % [place] % (Auto) 12.6 (0.0-15.0) % Eos % (Auto) 5.6 (0.0-7.0) % Baso % (Auto) 0.3 (0.0-1.5) % Neut # (Auto) 3.1 (1.4-5.7) K/uL Lymph # (Auto) 1.7 (0.6-2.4) K/uL [place] # (Auto) 0.7 (0.0-0.8) K/uL Eos # (Auto) 0.3 (0.0-0.7) K/uL Baso # (Auto) 0.0 (0.0-0.1) K/uL Nucleated RBC % 0.0 /100WBC Nucleated RBCs # 0 K/uL Sodium 142 (136-148) mmol/L Potassium 3.9 (3.5-5.1) mmol/L Chloride 107 (98-107) mmol/L Carbon Dioxide 28.5 (21.0-32.0) mmol/L BUN 16 (7.0-18.0) mg/dL Creatinine 1.0 (0.8-1.3) mg/dL Est Cr Clr Drug Dosing 111.90 mL/min Estimated GFR (MDRD) > 60.0 ml/min Glucose 108 H (74-106) mg/dL Calcium 8.3 L (8.5-10.1) mg/dL Vancomycin Trough 16.0 H (5.0-10.0) ug/mL [facility] Results - Last 24 hrs: Microbiology 06/10/18 14:15 Urine Culture - Final Urine, Clean Catch No Growth 06/10/18 10:41 Wound Culture - Final Knee, Right Staphylococcus Aureus 06/10/18 11:03 Aerobic Blood Culture - Preliminary Blood - Venous - Lab Draw NO GROWTH AFTER 1 DAY Anaerobic Blood Culture - Preliminary NO GROWTH AFTER 1 DAY 06/10/18 10:53 Aerobic Blood Culture - Preliminary Blood - Venous NO GROWTH AFTER 1 DAY Anaerobic Blood Culture - Preliminary NO GROWTH AFTER 1 DAY Med Orders - Current: Current Medications Carbamazepine (Tegretol Tab) 200 mg PO DAILY [facility] Last Admin: 06/12/18 09:28 Dose: 200 mg Heparin Sodium (Porcine) (Heparin Sodium) 5,000 units SUBCUT Q8H [facility] Last Admin: 06/12/18 04:20 Dose: 5,000 units Ibuprofen (Motrin) 400 mg PO Q6H PRN PRN Reason: Pain (mild 1-3) Last Admin: 06/11/18 23:19 Dose: 400 mg Lisinopril (Prinivil) 40 mg PO DAILY [facility] Last Admin: 06/12/18 09:26 Dose: 40 mg Nicotine (Habitrol) 14 mg TRDERM DAILY [facility] Last Admin: 06/12/18 09:28 Dose: 14 mg Ondansetron HCl (Zofran) 4 mg IVPUSH Q4H PRN PRN Reason: Nausea Oxycodone HCl (Oxycodone) 5 mg PO Q4H PRN PRN Reason: Pain (moderate 4-6) Last Admin: 06/12/18 09:46 Dose: 5 mg Sodium Chloride (Saline Flush) 10 ml FLUSH ASDIRECTED PRN PRN Reason: Keep Vein Open Last Admin: 06/10/18 11:01 Dose: 10 ml Sodium Chloride (Saline Flush) 2.5 ml FLUSH ASDIRECTED PRN PRN Reason: Keep Vein Open Last Admin: 06/10/18 11:01 Dose: 2.5 ml Trimethoprim/Sulfamethoxazole (Septra Ds) 1 tab PO BID [facility] Discontinued Medications Sodium Chloride (Normal Saline) 1,000 mls @ 999 mls/hr IV STAT ONE Stop: 06/10/18 11:43 Last Admin: 06/10/18 10:57 Dose: 999 mls/hr Piperacillin Sod/Tazobactam (Sod 3.375 gm/ Sodium Chloride) 50 mls @ 100 mls/ hr IV ONETIME ONE Stop: 06/10/18 11:12 Last Admin: 06/10/18 11:15 Dose: 100 mls/hr Vancomycin HCl 1 gm/ Sodium (Chloride) 250 mls @ 250 mls/hr IV ONETIME ONE Stop: 06/10/18 11:42 Last Admin: 06/10/18 11:57 Dose: 250 mls/hr Piperacillin Sod/Tazobactam (Sod 3.375 gm/ Sodium Chloride) 50 mls @ 100 mls/ hr IV Q6H [facility] Last Infusion: 06/12/18 05:00 Dose: Infused Vancomycin HCl 1,500 mg/ (Sodium Chloride) 500 mls @ 333.333 mls/hr IV Q8H [facility] Last Admin: 06/12/18 09:55 Dose: Not Given Ketorolac Tromethamine (Toradol) 30 mg IVPUSH ONETIME ONE Stop: 06/10/18 11:02 Last Admin: 06/10/18 11:14 Dose: 30 mg Vancomycin HCl (Pharmacy To Dose - Vancomycin) 1 dose .XX ASDIRECTED [facility] <Ronni Lunsford - Last Filed: 06/12/18 20:17> - Patient Data Vitals - Most Recent: Last Vital Signs Temp 36.4 C 06/12/18 08:50 Pulse 88 06/12/18 08:50 Resp 16 06/12/18 08:50 BP 150/94 H 06/12/18 09:26 Pulse Ox 97 06/12/18 08:50 I&O - Last 24 hours: Intake & Output 06/12/18 06/12/18 06/12/18 06:59 14:59 22:59 Intake Total 2100 550 Output Total 600 900 Balance 1500 -350 Lab Results - Last 24 hrs: Laboratory Results - last 24 hr 06/12/18 06/12/18 06/12/18 Range/Units 04:55 04:55 07:40 WBC 5.86 (4.0-11.0) K/uL RBC 4.00 L (4.50-5.90) M/uL Hgb 13.1 (13.0-17.0) g/dL Hct 38.4 (38.0-50.0) % MCV 96.0 (80.0-98.0) fL MCH 32.8 H (27.0-32.0) pg MCHC 34.1 (31.0-37.0) g/dL RDW Std Deviation 43.9 (28.0-62.0) fl RDW Coeff of [place] Crist[place] 13 (11.0-15.0) % Plt Count 255 (150-400) K/uL MPV 9.50 (7.40-12.00) fL Neut % (Auto) 52.3 (48.0-80.0) % Lymph % (Auto) 29.2 (16.0-40.0) % [place] % (Auto) 12.6 (0.0-15.0) % Eos % (Auto) 5.6 (0.0-7.0) % Baso % (Auto) 0.3 (0.0-1.5) % Neut # (Auto) 3.1 (1.4-5.7) K/uL Lymph # (Auto) 1.7 (0.6-2.4) K/uL [place] # (Auto) 0.7 (0.0-0.8) K/uL Eos # (Auto) 0.3 (0.0-0.7) K/uL Baso # (Auto) 0.0 (0.0-0.1) K/uL Nucleated RBC % 0.0 /100WBC Nucleated RBCs # 0 K/uL Sodium 142 (136-148) mmol/L Potassium 3.9 (3.5-5.1) mmol/L Chloride 107 (98-107) mmol/L Carbon Dioxide 28.5 (21.0-32.0) mmol/L BUN 16 (7.0-18.0) mg/dL Creatinine 1.0 (0.8-1.3) mg/dL Est Cr Clr Drug Dosing 111.90 mL/min Estimated GFR (MDRD) > 60.0 ml/min Glucose 108 H (74-106) mg/dL Calcium 8.3 L (8.5-10.1) mg/dL Vancomycin Trough 16.0 H (5.0-10.0) ug/mL [facility] Results - Last 24 hrs: Microbiology 06/10/18 11:03 Aerobic Blood Culture - Preliminary Blood - Venous - Lab Draw NO GROWTH AFTER 2 DAYS Anaerobic Blood Culture - Preliminary NO GROWTH AFTER 2 DAYS 06/10/18 10:53 Aerobic Blood Culture - Preliminary Blood - Venous NO GROWTH AFTER 2 DAYS Anaerobic Blood Culture - Preliminary NO GROWTH AFTER 2 DAYS 06/10/18 14:15 Urine Culture - Final Urine, Clean Catch No Growth 06/10/18 10:41 Wound Culture - Final Knee, Right Staphylococcus Aureus Med Orders - Current: Current Medications Discontinued Medications Carbamazepine (Tegretol Tab) 200 mg PO DAILY [facility] Last Admin: 06/12/18 09:28 Dose: 200 mg Heparin Sodium (Porcine) (Heparin Sodium) 5,000 units SUBCUT Q8H [facility] Last Admin: 06/12/18 04:20 Dose: 5,000 units Sodium Chloride (Normal Saline) 1,000 mls @ 999 mls/hr IV STAT ONE Stop: 06/10/18 11:43 Last Admin: 06/10/18 10:57 Dose: 999 mls/hr Piperacillin Sod/Tazobactam (Sod 3.375 gm/ Sodium Chloride) 50 mls @ 100 mls/ hr IV ONETIME ONE Stop: 06/10/18 11:12 Last Admin: 06/10/18 11:15 Dose: 100 mls/hr Vancomycin HCl 1 gm/ Sodium (Chloride) 250 mls @ 250 mls/hr IV ONETIME ONE Stop: 06/10/18 11:42 Last Admin: 06/10/18 11:57 Dose: 250 mls/hr Piperacillin Sod/Tazobactam (Sod 3.375 gm/ Sodium Chloride) 50 mls @ 100 mls/ hr IV Q6H [facility] Last Infusion: 06/12/18 05:00 Dose: Infused Vancomycin HCl 1,500 mg/ (Sodium Chloride) 500 mls @ 333.333 mls/hr IV Q8H [facility] Last Admin: 06/12/18 09:55 Dose: Not Given Ibuprofen (Motrin) 400 mg PO Q6H PRN PRN Reason: Pain (mild 1-3) Last Admin: 06/11/18 23:19 Dose: 400 mg Ketorolac Tromethamine (Toradol) 30 mg IVPUSH ONETIME ONE Stop: 06/10/18 11:02 Last Admin: 06/10/18 11:14 Dose: 30 mg Lisinopril (Prinivil) 40 mg PO DAILY [facility] Last Admin: 06/12/18 09:26 Dose: 40 mg Nicotine (Habitrol) 14 mg TRDERM DAILY [facility] Last Admin: 06/12/18 09:28 Dose: 14 mg Ondansetron HCl (Zofran) 4 mg IVPUSH Q4H PRN PRN Reason: Nausea Oxycodone HCl (Oxycodone) 5 mg PO Q4H PRN PRN Reason: Pain (moderate 4-6) Last Admin: 06/12/18 09:46 Dose: 5 mg Sodium Chloride (Saline Flush) 10 ml FLUSH ASDIRECTED PRN PRN Reason: Keep Vein Open Last Admin: 06/10/18 11:01 Dose: 10 ml Sodium Chloride (Saline Flush) 2.5 ml FLUSH ASDIRECTED PRN PRN Reason: Keep Vein Open Last Admin: 06/10/18 11:01 Dose: 2.5 ml Trimethoprim/Sulfamethoxazole (Septra Ds) 1 tab PO BID [facility] Last Admin: 06/12/18 10:44 Dose: 1 tab Vancomycin HCl (Pharmacy To Dose - Vancomycin) 1 dose .XX ASDIRECTED [facility] - Free Text/Narrative Note: I have examined patient. I have discussed findings and treatment plan with the resident. I agree with the assessment and plan in the following resident's note.
== END 2018-06-12 11:10 | disposition home or self-care (01) ==
LOC: MW.ED 09:50 → MW.MS 11:44
PROVIDERS: ADMIT Internal Medicine; ATTEND Internal Medicine
DX: L03.115 Cellulitis of right lower limb (principal); D72.829 Elevated white blood cell count, unspecified; Z79.2 Long term (current) use of antibiotics; Z79.899 Other long term (current) drug therapy
CPT/HCPCS: 36415; 73562; 80048; 80053; 80202; 81001; 85025; 87040; 87070; 87077; 87086; 87186; 96365; 96367; 96375; 99284; A9270; J1644; J1885; J2543; J3370; J7040; J7050; 96366; 96372; 96376; G0378

== ENCOUNTER 2019-11-05 19:55 | Emergency (ER) | payer SELFPAY ==
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
== END 2019-11-05 20:53 | disposition home or self-care (01) ==
LOC: MW.ED 19:55
DX: Z02.89 Encounter for other administrative examinations (principal); I10 Essential (primary) hypertension; F17.210 Nicotine dependence, cigarettes, uncomplicated; Z79.899 Other long term (current) drug therapy
CPT/HCPCS: 99282; 99283

== ENCOUNTER 2020-01-15 21:53 | Emergency (ER) | payer SELFPAY ==
[2020-01-15] MEDS ORDERED: traMADol 50 MG Tab PO ONE (22:09)
--- NOTE | 2020-01-15 22:57 | CR ---
Indication: Injury and pain Technique: Left hand 3 views Comparison: None Findings: Bones: Alignment is normal. No fractures or bone lesions. Joint spaces: Unremarkable. Soft tissues: Unremarkable. Impression: No sign of acute injury. Dictated by Dewey Moura MD @ Jan 15 2020 10:53PM Signed by Dr. Dewey Moura @ Jan 15 2020 10:56PM
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
[2020-01-16] MEDS ORDERED: Bacitracin Oint 1 GM U/D Packet TOP ONE (00:39)
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
== END 2020-01-16 01:15 | disposition home or self-care (01) ==
LOC: MW.ED 21:53
DX: S02.40EA Zygomatic fracture, right side, initial encounter for closed fracture (principal); S01.01XA Laceration without foreign body of scalp, initial encounter; S60.512A Abrasion of left hand, initial encounter; I10 Essential (primary) hypertension; Z79.899 Other long term (current) drug therapy; Y04.0XXA Assault by unarmed brawl or fight, initial encounter
CPT/HCPCS: 12004; 70450; 70450-26; 70486; 70486-26; 73130-26-LT; 73130-LT; 99284; 99284-25

== ENCOUNTER 2020-07-02 10:58 | Emergency (ER) | payer MEDICAID, OTHER ==
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
== END 2020-07-02 11:23 ==
LOC: MW.ED 10:58
DX: Z02.89 Encounter for other administrative examinations (principal); I10 Essential (primary) hypertension; Z79.899 Other long term (current) drug therapy
CPT/HCPCS: 99283